=== PATIENT | female | born 1995 | race Caucasian/White ===

== ENCOUNTER 2023-02-04 20:49 | Emergency (ER) | payer OTHER, SELFPAY ==
--- NOTE | ~2023-02-04 | CT_ITS ---
EXAMINATION: CT ANGIOGRAM NECK AND HEAD CLINICAL INFORMATION: Complex migraine COMPARISON: None. TECHNIQUE: Initial noncontrast head CT was performed. Test bolus sequences followed by intravenous administration 70 mL of Omnipaque 350. Helical imaging was performed in the axial plane from the thoracic inlet to the skull vertex. Delayed postcontrast imaging of the head was also performed. The data was processed at the communications technologist's workstation for generation of MIP sequences. Angled MIPs and volume rendered reformatted images were also generated at an offline 3D workstation. Stenoses are assessed in accordance with NASCET criteria unless otherwise indicated. DOSE LOWERING TECHNIQUES: This CT examination was performed using dose optimization techniques as appropriate, variously including the following: - Automated exposure control - Adjustment of mA and/or kV according to patient size (this includes techniques or standardized protocols for targeted exams were dose is matched to indication/reason for exam; i.e. extremities or head) - Use of iterative reconstruction technique DLP: 2238 mGy-cm FINDINGS: Neck CTA: There is common origin of the brachiocephalic and left common carotid arteries off the aortic arch. Normal appearance of the visualized aortic arch and proximal branches. No evidence of stenosis at the branch origins. The left vertebral artery arises directly off the aortic arch, an anatomic variant. Both vertebral arteries are widely patent throughout their extracranial cervical course. Normal appearance of the common and internal carotid arteries without focal stenosis. Brain CTA: Normal appearance of the intradural vertebral arteries. Normal appearance of the basilar and superior cerebellar arteries. Normal appearance of the posterior cerebral arteries bilaterally. Normal appearance of the intradural internal carotid arteries without focal stenosis. Normal appearance of the anterior cerebral and middle cerebral arteries without focal occlusion or stenosis. Normal anterior communicating artery. Normal arborization of the middle cerebral arteries. CT Head: No intracranial mass, hemorrhage, extra-axial collection, or midline shift. The tovar-white matter differentiation is preserved. No pathologic intra-axial enhancement or regional oligemia. No hydrocephalus. The mastoid air cells and paranasal sinuses remain well aerated. CT Neck: The thyroid gland and remaining cervical soft tissues are normal in appearance. No cervical spine abnormalities demonstrated. Upper Chest: No abnormalities in the visualized lung apices or upper mediastinum. CT/CT angio head neck IMPRESSION: 1. No acute intracranial findings. 2. No hemodynamically significant stenosis in the major arteries of the neck. No large vessel occlusion or significant stenosis in the intracranial circulation.
--- NOTE | 2023-02-04 20:52 | ED.HA ---
HPI - Headache General Chief Complaint: General Medical <Melvin Rowe MD - Last Filed: 02/04/23 22:00> Stated Complaint: trouble finding words for 5mins <Melvin Rowe MD - Last Filed: 02/04/23 22:00> Time Seen by Provider: 02/04/23 20:51 <Melvin Rowe MD - Last Filed: 02/04/23 22:00> Source: patient <Melvin Rowe MD - Last Filed: 02/04/23 22:00> Mode of arrival: EMS <Melvin Rowe MD - Last Filed: 02/04/23 22:00> Limitations: no limitations <Melvin Rowe MD - Last Filed: 02/04/23 22:00> History of Present Illness HPI Narrative: patient had visual changes and waves followed by a headache. She then developed a headache. visual changes returned in a few hours, headache was constant and then she had trouble finding words for 5 minutes. Patient did not have a history of migraine. No prior history of above, patient under some stress since delivering and she has had a problem recently eating. She is 6 months , with baby number 1. patient is breast feeding. <Melvin Rowe MD - Last Filed: 02/04/23 22:00> MD elicited complaint: headache <Melvin Rowe MD - Last Filed: 02/04/23 22:00> Onset (ago): hour(s) <Melvin Rowe MD - Last Filed: 02/04/23 22:00> Onset description: gradually <Melvin Rowe MD - Last Filed: 02/04/23 22:00> Location: occipital <Melvin Rowe MD - Last Filed: 02/04/23 22:00> Severity: moderate <Melvin Rowe MD - Last Filed: 02/04/23 22:00> Context: occurred at rest <Melvin Rowe MD - Last Filed: 02/04/23 22:00> Related Data Home Medications: Previous Rx's Medication Instructions Recorded ihmhddrxds-qsodfulstrwaf-vrjpulbc 1 cap PO Q6H PRN headache #20 caps 02/04/23 50 mg-300 mg-40 mg capsule (Fioricet) <Melvin Rowe MD - Last Filed: 02/04/23 22:00> Allergies/Adverse Reactions: Allergies Allergy/AdvReac Type Severity Reaction Status Date / Time No Known Allergies Allergy Verified 02/04/23 21:11 <Melvin Rowe MD - Last Filed: 02/04/23 22:00> Review of Systems Review of Systems: Yes all other systems are reviewed and are negative <Melvin Rowe MD - Last Filed: 02/04/23 22:00> Constitutional: Comments: headache with visual changes and difficulty finding words <Melvin Rowe MD - Last Filed: 02/04/23 22:00> Neurologic: Denies Sensory deficit (Neuro) <Melvin Rowe MD - Last Filed: 02/04/23 22:00> [facility] Social History Social History: Social History Advance Directives: No Advance Directives Information Provided: No <Melvin Rowe MD - Last Filed: 02/04/23 22:00> Physical Exam Vital Signs: Vital Signs: Last Vital Signs Temp 98 F 02/04/23 21:05 Pulse 73 02/04/23 21:05 Resp 18 02/04/23 21:05 BP 133/70 02/04/23 21:05 Pulse Ox 97 02/04/23 21:05 O2 Del Method Room Air 02/04/23 21:05 BMI result Body Mass Index 41.8 <Melvin Rowe MD - Last Filed: 02/04/23 22:00> Vital Signs: Last Vital Signs Temp 98 F 02/04/23 21:05 Pulse 73 02/04/23 21:05 Resp 18 02/04/23 21:05 BP 133/70 02/04/23 21:05 Pulse Ox 97 02/04/23 21:05 O2 Del Method Room Air 02/04/23 21:05 BMI result Body Mass Index 41.8 <Heber Mccarty MD - Last Filed: 02/04/23 23:48> Const: General: healthy appearing <Melvin Rowe MD - Last Filed: 02/04/23 22:00> Nutritional Appearance: average body habitus <Melvin Rowe MD - Last Filed: 02/04/23 22:00> Orientation/consciousness: oriented to person and patient oriented x3 <Melvin Rowe MD - Last Filed: 02/04/23 22:00> Limitations: no limitations <Melvin Rowe MD - Last Filed: 02/04/23 22:00> HEENT: Head: Yes normal to inspection <Melvin Rowe MD - Last Filed: 02/04/23 22:00> Ears: external ears normal <Melvin Rowe MD - Last Filed: 02/04/23 22:00> General nose exam: Normal external nose present <Melvin Rowe MD - Last Filed: 02/04/23 22:00> Mouth: Normal oral and palatal mucosa present and oropharynx normal <Melvin Rowe MD - Last Filed: 02/04/23 22:00> Throat: Yes posterior oropharynx normal <Melvin Rowe MD - Last Filed: 02/04/23 22:00> Eyes: General: appearance normal, both eyes and all related structures <Melvin Rowe MD - Last Filed: 02/04/23 22:00> Neck: Other: supple <Melvin Rowe MD - Last Filed: 02/04/23 22:00> Neck: Yes normal visual inspection <Melvin Rowe MD - Last Filed: 02/04/23 22:00> Chest: Chest palpation & inspection: normal inspection of the chest <Melvin Rowe MD - Last Filed: 02/04/23 22:00> Resp: Auscultation: clear to auscultation bilaterally <Melvin Rowe MD - Last Filed: 02/04/23 22:00> Cardio: Jugular venous distension: no JVD <Melvin Rowe MD - Last Filed: 02/04/23 22:00> Rate: regular rate <Melvin Rowe MD - Last Filed: 02/04/23 22:00> Rhythm: regular rhythm <Melvin Rowe MD - Last Filed: 02/04/23 22:00> Heart sounds: S1 normal heart sound present and S2 normal heart sound present <Melvin Rowe MD - Last Filed: 02/04/23 22:00> GI: Inspection: Yes normal to inspection <Melvin Rowe MD - Last Filed: 02/04/23 22:00> Palpation (GI): Soft to palpation, nontender and No hepatosplenomegaly present <Melvin Rowe MD - Last Filed: 02/04/23 22:00> Auscultation: normal bowel sounds <Melvin Rowe MD - Last Filed: 02/04/23 22:00> : General: Yes no CVA tenderness <Melvin Rowe MD - Last Filed: 02/04/23 22:00> Back/Spine/Pelvis: Back: no CVA tenderness <Melvin Rowe MD - Last Filed: 02/04/23 22:00> Skin: General skin exam: no rashes or lesions noted <Melvin Rowe MD - Last Filed: 02/04/23 22:00> Neuro: General: oriented to person and patient oriented x3 <Melvin Rowe MD - Last Filed: 02/04/23 22:00> Cranial nerves: Yes CN's II-XII intact bilaterally <Melvin Rowe MD - Last Filed: 02/04/23 22:00> Motor exam (neuro): 5/5 motor strength present throughout <Melvin Rowe MD - Last Filed: 02/04/23 22:00> Sensory Exam: No Sensory deficit (Neuro) <Melvin Rowe MD - Last Filed: 02/04/23 22:00> Extrem: General: Yes normal to inspection <Melvin Rowe MD - Last Filed: 02/04/23 22:00> Psych: Appearance: grossly normal <Melvin Rowe MD - Last Filed: 02/04/23 22:00> NIH Stroke Scale Level of Consciousness: Alert <Melvin Rowe MD - Last Filed: 02/04/23 22:00> Level of Consciousness Questions: Answers both questions correctly <Melvin Rowe MD - Last Filed: 02/04/23 22:00> Level of Consciousness Commands: Performs both tasks correctly <Melvin Rowe MD - Last Filed: 02/04/23 22:00> Best Gaze: Normal <Melvin Rowe MD - Last Filed: 02/04/23 22:00> Visual: No visual loss <Melvin Rowe MD - Last Filed: 02/04/23 22:00> Facial Palsy: Normal <Melvin Rowe MD - Last Filed: 02/04/23 22:00> Motor Arm (Right): No drift <Melvin Rowe MD - Last Filed: 02/04/23 22:00> Motor Arm (Left): No drift <Melvin Rowe MD - Last Filed: 02/04/23 22:00> Motor Leg (Right): No drift <Melvin Rowe MD - Last Filed: 02/04/23 22:00> Motor Leg (Left): No drift <Melvin Rowe MD - Last Filed: 02/04/23 22:00> Limb Ataxia: Absent <Melvin Rowe MD - Last Filed: 02/04/23 22:00> Sensory: Normal <Melvin Rowe MD - Last Filed: 02/04/23 22:00> Best Language: No aphasia <Melvin Rowe MD - Last Filed: 02/04/23 22:00> Dysarthia: Normal <Melvin Rowe MD - Last Filed: 02/04/23 22:00> Extinction and Inattention: No abnormality <Melvin Rowe MD - Last Filed: 02/04/23 22:00> Score: 0 <Melvin Rowe MD - Last Filed: 02/04/23 22:00> 0 <Heber Mccarty MD - Last Filed: 02/04/23 23:48> Course Reevaluation(s) Reevaluation #1: my impression is that the patient has a migraine WALL with prodrome and momentary visual changes on speech difficulty. Will sign out to Dr. Mccarty <Melvin Rowe MD - Last Filed: 02/04/23 22:00> Time: 21:59 <Melvin Rowe MD - Last Filed: 02/04/23 22:00> Medications Administered Discontinued Medications Generic Name Dose Route Start Last Admin Trade Name Freq PRN Reason Stop Dose Admin Iohexol 100 ml 02/04/23 22:40 02/04/23 22:40 Iohexol 350 Mg/Ml 100 Ml Infus..Btl IV 02/04/23 22:41 70 ml ONCE ONE Administration Ketorolac Tromethamine 30 mg 02/04/23 21:05 02/04/23 22:16 Ketorolac Tromethamine 30 Mg/Ml Vial IVPUSH 02/04/23 21:06 30 mg ONCE ONE Administration <Melvin Rowe MD - Last Filed: 02/04/23 22:00> Medications Administered Discontinued Medications Generic Name Dose Route Start Last Admin Trade Name Waqas PRN Reason Stop Dose Admin Iohexol 100 ml 02/04/23 22:40 02/04/23 22:40 Iohexol 350 Mg/Ml 100 Ml Infus..Btl IV 02/04/23 22:41 70 ml ONCE ONE Administration Ketorolac Tromethamine 30 mg 02/04/23 21:05 02/04/23 22:16 Ketorolac Tromethamine 30 Mg/Ml Vial IVPUSH 02/04/23 21:06 30 mg ONCE ONE Administration <Heber Mccarty MD - Last Filed: 02/04/23 23:48> Medical Decision Making Medical Decision Making [facility] Narrative: Patient's CTA head neck negative for any acute likely has migraine headaches feeling much better at this time will discharge patient home <Heber Mccarty MD - Last Filed: 02/04/23 23:48> Differential Diagnosis Differential Diagnoses: The differential diagnosis associated with the presentation includes (migraine WALL, TIA, CVA, cerebral tumor) <Melvin Rowe MD - Last Filed: 02/04/23 22:00> Lab Data Result Diagrams: 02/04/23 21:48 02/04/23 21:48 <Melvin Rowe MD - Last Filed: 02/04/23 22:00> Labs: Lab Results 02/04/23 02/04/23 02/04/23 Range/Units 21:48 21:48 22:01 WBC 5.5 (4.8-10.8) X10*3/uL RBC 4.79 (4.20-5.50) X10*6/uL Hgb 12.4 (12.0-16.0) g/dl Hct 38.8 (37.0-47.0) % MCV 81.0 (80.0-98.0) fL MCH 25.9 L (27.0-33.0) pg MCHC 32.0 (31.0-35.0) g/dl RDW 13.2 (11.0-16.0) % Plt Count 254 (160-400) X10*3/uL MPV 9.9 (9.4-12.3) fL Immature Gran % (Auto) 0.4 (0.0-0.4) % Neut % (Auto) 63.3 (45-73) % Lymph % (Auto) 26.9 (20-40) % [place] % (Auto) 7.4 (2-11) % Eos % (Auto) 1.5 (0-4) % Baso % (Auto) 0.5 (0-2) % Lymph # (Auto) 1.5 (1.2-4.9) X10*3/uL [place] # (Auto) 0.4 (0.1-1.2) X10*3/uL Eos # (Auto) 0.1 (0.0-0.4) X10*3/uL Baso # (Auto) 0.0 (0.0-0.2) X10*3/uL Abs Immat Gran (auto) 0.02 (0.00-0.03) X10*3/uL Absolute Neuts (auto) 3.5 (2.0-8.3) x10*3/uL Absolute Nucleated RBC 0.000 (0.0-0.012) X10*3/uL Nucleated RBC % (auto) 0.0 (0.0-0.2) /100WBC Sodium 142 (135-145) mmol/L Potassium 3.9 (3.3-5.1) mmol/L Chloride 107 (96-108) mmol/L Carbon Dioxide 24 (22-29) mmol/L Anion Gap 15 (12-20) BUN 8 L (9-16) mg/dL Creatinine 0.81 (0.5-1.4) mg/dL Estim Creat Clear Calc 156.7 Estimated GFR > 60 Random Glucose 98 (60-115) mg/dL Calcium 9.6 (8.4-10.2) mg/dL Urine Color Yellow Urine Appearance Clear Urine pH 5.5 (5.0-9.0) Ur Specific [place] 1.010 (1.005-1.025) Urine Protein Negative (Neg-Trace) mg/dL Urine Glucose (UA) Negative (Negative) mg/dL Urine Ketones Negative (Negative) mg/dL Urine Blood Negative (Negative) Urine Nitrite Negative (Negative) Ur Leukocyte Esterase Trace H (Negative) Urine RBC 0-2 (0-2) /HPF Urine WBC 0-5 (0-5) /HPF Ur Squamous Epith Cells 3-5 (0-2) /HPF Urine Bacteria None Seen (None Seen) Hyaline Casts 0-2 (0-2) /LPF Urine Test (NEGATIVE) 02/04/23 Range/Units 22:01 WBC (4.8-10.8) X10*3/uL RBC (4.20-5.50) X10*6/uL Hgb (12.0-16.0) g/dl Hct (37.0-47.0) % MCV (80.0-98.0) fL MCH (27.0-33.0) pg MCHC (31.0-35.0) g/dl RDW (11.0-16.0) % Plt Count (160-400) X10*3/uL MPV (9.4-12.3) fL Immature Gran % (Auto) (0.0-0.4) % Neut % (Auto) (45-73) % Lymph % (Auto) (20-40) % [place] % (Auto) (2-11) % Eos % (Auto) (0-4) % Baso % (Auto) (0-2) % Lymph # (Auto) (1.2-4.9) X10*3/uL [place] # (Auto) (0.1-1.2) X10*3/uL Eos # (Auto) (0.0-0.4) X10*3/uL Baso # (Auto) (0.0-0.2) X10*3/uL Abs Immat Gran (auto) (0.00-0.03) X10*3/uL Absolute Neuts (auto) (2.0-8.3) x10*3/uL Absolute Nucleated RBC (0.0-0.012) X10*3/uL Nucleated RBC % (auto) (0.0-0.2) /100WBC Sodium (135-145) mmol/L Potassium (3.3-5.1) mmol/L Chloride (96-108) mmol/L Carbon Dioxide (22-29) mmol/L Anion Gap (12-20) BUN (9-16) mg/dL Creatinine (0.5-1.4) mg/dL Estim Creat Clear Calc Estimated GFR Random Glucose (60-115) mg/dL Calcium (8.4-10.2) mg/dL Urine Color Urine Appearance Urine pH (5.0-9.0) Ur Specific [place] (1.005-1.025) Urine Protein (Neg-Trace) mg/dL Urine Glucose (UA) (Negative) mg/dL Urine Ketones (Negative) mg/dL Urine Blood (Negative) Urine Nitrite (Negative) Ur Leukocyte Esterase (Negative) Urine RBC (0-2) /HPF Urine WBC (0-5) /HPF Ur Squamous Epith Cells (0-2) /HPF Urine Bacteria (None Seen) Hyaline Casts (0-2) /LPF Urine Test NEGATIVE (NEGATIVE) <Melvin Rowe MD - Last Filed: 02/04/23 22:00> Lab Results 02/04/23 02/04/23 02/04/23 Range/Units 21:48 21:48 22:01 WBC 5.5 (4.8-10.8) X10*3/uL RBC 4.79 (4.20-5.50) X10*6/uL Hgb 12.4 (12.0-16.0) g/dl Hct 38.8 (37.0-47.0) % MCV 81.0 (80.0-98.0) fL MCH 25.9 L (27.0-33.0) pg MCHC 32.0 (31.0-35.0) g/dl RDW 13.2 (11.0-16.0) % Plt Count 254 (160-400) X10*3/uL MPV 9.9 (9.4-12.3) fL Immature Gran % (Auto) 0.4 (0.0-0.4) % Neut % (Auto) 63.3 (45-73) % Lymph % (Auto) 26.9 (20-40) % [place] % (Auto) 7.4 (2-11) % Eos % (Auto) 1.5 (0-4) % Baso % (Auto) 0.5 (0-2) % Lymph # (Auto) 1.5 (1.2-4.9) X10*3/uL [place] # (Auto) 0.4 (0.1-1.2) X10*3/uL Eos # (Auto) 0.1 (0.0-0.4) X10*3/uL Baso # (Auto) 0.0 (0.0-0.2) X10*3/uL Abs Immat Gran (auto) 0.02 (0.00-0.03) X10*3/uL Absolute Neuts (auto) 3.5 (2.0-8.3) x10*3/uL Absolute Nucleated RBC 0.000 (0.0-0.012) X10*3/uL Nucleated RBC % (auto) 0.0 (0.0-0.2) /100WBC Sodium 142 (135-145) mmol/L Potassium 3.9 (3.3-5.1) mmol/L Chloride 107 (96-108) mmol/L Carbon Dioxide 24 (22-29) mmol/L Anion Gap 15 (12-20) BUN 8 L (9-16) mg/dL Creatinine 0.81 (0.5-1.4) mg/dL Estim Creat Clear Calc 156.7 Estimated GFR > 60 Random Glucose 98 (60-115) mg/dL Calcium 9.6 (8.4-10.2) mg/dL Urine Color Yellow Urine Appearance Clear Urine pH 5.5 (5.0-9.0) Ur Specific [place] 1.010 (1.005-1.025) Urine Protein Negative (Neg-Trace) mg/dL Urine Glucose (UA) Negative (Negative) mg/dL Urine Ketones Negative (Negative) mg/dL Urine Blood Negative (Negative) Urine Nitrite Negative (Negative) Ur Leukocyte Esterase Trace H (Negative) Urine RBC 0-2 (0-2) /HPF Urine WBC 0-5 (0-5) /HPF Ur Squamous Epith Cells 3-5 (0-2) /HPF Urine Bacteria None Seen (None Seen) Hyaline Casts 0-2 (0-2) /LPF Urine Test (NEGATIVE) 02/04/23 Range/Units 22:01 WBC (4.8-10.8) X10*3/uL RBC (4.20-5.50) X10*6/uL Hgb (12.0-16.0) g/dl Hct (37.0-47.0) % MCV (80.0-98.0) fL MCH (27.0-33.0) pg MCHC (31.0-35.0) g/dl RDW (11.0-16.0) % Plt Count (160-400) X10*3/uL MPV (9.4-12.3) fL Immature Gran % (Auto) (0.0-0.4) % Neut % (Auto) (45-73) % Lymph % (Auto) (20-40) % [place] % (Auto) (2-11) % Eos % (Auto) (0-4) % Baso % (Auto) (0-2) % Lymph # (Auto) (1.2-4.9) X10*3/uL [place] # (Auto) (0.1-1.2) X10*3/uL Eos # (Auto) (0.0-0.4) X10*3/uL Baso # (Auto) (0.0-0.2) X10*3/uL Abs Immat Gran (auto) (0.00-0.03) X10*3/uL Absolute Neuts (auto) (2.0-8.3) x10*3/uL Absolute Nucleated RBC (0.0-0.012) X10*3/uL Nucleated RBC % (auto) (0.0-0.2) /100WBC Sodium (135-145) mmol/L Potassium (3.3-5.1) mmol/L Chloride (96-108) mmol/L Carbon Dioxide (22-29) mmol/L Anion Gap (12-20) BUN (9-16) mg/dL Creatinine (0.5-1.4) mg/dL Estim Creat Clear Calc Estimated GFR Random Glucose (60-115) mg/dL Calcium (8.4-10.2) mg/dL Urine Color Urine Appearance Urine pH (5.0-9.0) Ur Specific [place] (1.005-1.025) Urine Protein (Neg-Trace) mg/dL Urine Glucose (UA) (Negative) mg/dL Urine Ketones (Negative) mg/dL Urine Blood (Negative) Urine Nitrite (Negative) Ur Leukocyte Esterase (Negative) Urine RBC (0-2) /HPF Urine WBC (0-5) /HPF Ur Squamous Epith Cells (0-2) /HPF Urine Bacteria (None Seen) Hyaline Casts (0-2) /LPF Urine Test NEGATIVE (NEGATIVE) <Heber Mccarty MD - Last Filed: 02/04/23 23:48> Discharge Plan Discharge Clinical Impression: Headache, migraine <Melvin Rowe MD - Last Filed: 02/04/23 22:00> Patient Disposition: Home, Self-Care <Melvin Rowe MD - Last Filed: 02/04/23 22:00> Instructions: Migraine Headache (ED) <Melvin Rowe MD - Last Filed: 02/04/23 22:00> Additional Instructions: Drink plenty of fluid Fioricet for headaches as needed every 6 hour Follow with PCP <Melvin oRwe MD - Last Filed: 02/04/23 22:00> Prescriptions: New wvukdfgbtz-sbkzosnmophfi-kazu [Fioricet] 50-300-40 mg capsule 1 cap PO Q6H PRN (Reason: headache) Qty: 20 0RF <Melvin Rowe MD - Last Filed: 02/04/23 22:00>
[2023-02-04 21:04] VITALS: BP 153/75; PULSE 82; O2SAT 100
[2023-02-04 21:05] VITALS: BP 133/70; PULSE 73; RESP 18; TEMP 36.6; O2SAT 97; BMI 41.8
[2023-02-04 21:52] LABS: MANUAL DIFF FLAG NO
[2023-02-04 21:53] LABS: Basophils Percent Auto 0.5 % (0-2); Eosinophils Absolute Auto 0.1 X10*3/uL (0.0-0.4); Eosinophils Percent Auto 1.5 % (0-4); Hematocrit 38.8 % (37.0-47.0); Hemoglobin 12.4 g/dl (12.0-16.0); Imm Gran Abs Auto 0.02 X10*3/uL (0.00-0.03); Imm Gran Pct Auto 0.4 % (0.0-0.4); Lymphocytes Absolute Auto 1.5 X10*3/uL (1.2-4.9); Lymphocytes Percent Auto 26.9 % (20-40); Mean Corpuscular Hemoglobin 25.9 pg (27.0-33.0); Mean Platelet Volume 9.9 fL (9.4-12.3); Monocytes Absolute Auto 0.4 X10*3/uL (0.1-1.2); Monocytes Percent Auto 7.4 % (2-11); Neutrophils Absolute Auto 3.5 x10*3/uL (2.0-8.3); Neutrophils Percent Auto 63.3 % (45-73); Platelet Count 254 X10*3/uL (160-400); Red Blood Count 4.79 X10*6/uL (4.20-5.50); Red Cell Distribution Width 13.2 % (11.0-16.0); White Blood Count 5.5 X10*3/uL (4.8-10.8)
[2023-02-04 22:08] LABS: Anion Gap 15 (12-20); Blood Urea Nitrogen 8 mg/dL (9-16); Calcium 9.6 mg/dL (8.4-10.2); Carbon Dioxide 24 mmol/L (22-29); Chloride 107 mmol/L (96-108); Creatinine Clr Calc Pharmacy 156.7; Estimated Glomerular Filt Rate > 60; Glucose Random 98 mg/dL (60-115); Potassium 3.9 mmol/L (3.3-5.1); Sodium 142 mmol/L (135-145)
[2023-02-04 22:09] LABS: Appearance Urine Clear; Color Urine Yellow; Glucose Urine UA Negative (Negative); Leukocyte Esterase Urine Trace (Negative); Nitrite Urine Negative (Negative); PH 5.5 (5.0-9.0); UMIC TRIGGER UACC YES; Urine Blood Negative (Negative); Urine Ketones Negative (Negative); Urine Protein Negative (Neg-Trace)
[2023-02-04 22:10] LABS: UPreg QC Valid YES; Urine Pregnancy NEGATIVE (NEGATIVE)
[2023-02-04 22:14] LABS: Bacteria Urine None Seen (None Seen); Hyaline Casts Urine 0-2 /LPF (0-2); RBC Urine 0-2 /HPF (0-2); WBC Urine 0-5 /HPF (0-5)
[2023-02-04] MEDS: Ketorolac Tromethamine 30 MG/ML VIAL IVPUSH (22:16)
[2023-02-04] MEDS: iohexoL 350 MG/ML 100 ML INFUS..BTL IV (22:40)
== END 2023-02-05 00:01 | disposition home or self-care (01) ==
PROVIDERS: Emergency Provider Emergency Medicine
DX: G43.909 Migraine, unspecified, not intractable, without status migrainosus (principal); Z79.899 Other long term (current) drug therapy
CPT/HCPCS: 36415; 70496; 70498; 80048; 81001; 81025; 85025; 96374; 99284; J1885; Q9967